=== PATIENT | male | born 1985 | race Caucasian/White ===

== ENCOUNTER 2016-07-08 15:02 | Day surgery (SDC) | payer BC ==
--- NOTE | 2016-07-08 15:10 | EDM.PDOC ---
ED HPI GENERAL MEDICAL PROBLEM - General Chief Complaint: General Stated Complaint: FOOD STUCK IN THROAT Time Seen by Provider: 07/08/16 15:10 Source of Information: Reports: Patient History Limitations: Reports: No limitations - History of Present Illness INITIAL COMMENTS - FREE TEXT/NARRATIVE: 30-year-old male presents the ED with esophageal obstruction. He states he was eating chicken yesterday and it got stuck in the lower part of his food pipe at about 1600 hours. He has not been able to swallow his own saliva since that time. He worked all night. Of note this is happened to him very frequently over the last several months. He had a piece of steak removed in January of last year by Dr. Tirado. Shunummsilviano he had had an esophagoscopy with removal of food product in [facility]. He was appreciated they seem to have some degree of stenosis at the distal aspect of his esophagus but he has never been dilated. He states now he is super careful with food in small quantity small pieces but continues to get food stuck almost every 2 weeks. Usually he can recur regurgitated up or intervention it works its way through. At present he is not in much pain her to discomfort. Nose pressure in the bed of the stomach. To his knowledge he has never had a peptic ulcer. Onset: sudden Onset Date: 07/08/16 Onset Time: 16:00 Duration: Hour(s):, Constant Location: Reports: chest (Pressure in the pit of his stomach or lower retrosternal area.) Quality: Reports: Ache, Other (Possibly regurgitating saliva or any fluids that he tries to intake.) Severity: moderate Improves with: Reports: None Worsens with: Reports: None Context: Reports: Other (Has been having food getting stuck in his distal esophagus about every 2 weeks for the last several months. He was here in January never piece of steak removed from his distal esophagus.). Denies: Activity, Exercise, Lifting, Sick contact, Trauma Associated Symptoms: Reports: no other symptoms. 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 [No Known Home Meds] 07/08/16 [History] Past Medical History Gastrointestinal History: Reports: GERD, Other (see below) (Suspect either achalasia or stricture of the distal esophagus) Social & Family History - Living Situation & Occupation Living situation: Reports: Occupation: employed ED ROS GENERAL - Review of Systems Review Of Systems: See Below Constitutional: Reports: no symptoms HEENT: Reports: No symptoms Respiratory: Reports: No Symptoms Cardiovascular: Reports: Chest pain (If he swallows he'll get pain in the distal aspect of his retrosternal chest.). Denies: Dyspnea on exertion, Edema, Lightheadedness, Orthopnea Endocrine: Reports: no symptoms GI/Abdominal: Denies: Abdominal pain : Reports: no symptoms Musculoskeletal: Reports: no symptoms Skin: Reports: no symptoms Neurological: Reports: No Symptoms ED EXAM, GENERAL - Physical Exam Exam: See Below Exam Limited By: No limitations General Appearance: alert, WD/WN, no apparent distress Eye Exam: bilateral eye: normal inspection (No jaundice) Throat/Mouth: Normal inspection, Normal lips, Normal teeth, Normal gums, Normal oropharynx Head: atraumatic, normocephalic Neck: normal inspection, supple, non-tender, full range of motion. No: lymphadenopathy (L), lymphadenopathy (R) Respiratory/Chest: no respiratory distress, lungs clear, normal breath sounds, no accessory muscle use Cardiovascular: normal peripheral pulses, regular rate, rhythm, no edema, no gallop, no JVD, no murmur, no rub Peripheral Pulses: 0: dorsalis pedis (L), 3+: posterior tibial (L), dorsalis pedis (R) GI/Abdominal: normal bowel sounds, soft, non tender, no organomegaly, no distention, no abnormal bruit, no mass (Male) Exam: No hernia Back Exam: normal inspection, full range of motion. No: CVA tenderness (L), CVA tenderness (R) Extremities: normal inspection, normal range of motion, non-tender, no pedal edema, normal capillary refill Neurological: alert, oriented, CN II-XII intact, normal cognition, normal gait Psychiatric: normal affect, normal mood Skin Exam: Warm, Dry, Intact, Normal color, No rash Course - Vital Signs Last Recorded V/S: Last Vital Signs Temp 36.8 C 07/08/16 15:08 Pulse 92 07/08/16 15:08 Resp 16 07/08/16 15:08 BP 143/87 H 07/08/16 15:08 Pulse Ox 100 07/08/16 15:08 - Orders/Labs/Meds Orders: Active Orders 24 hr Category Date Time Status Admission Status [Patient Status] [ADT] Routine ADT 07/08/16 16:49 Ordered Labs: Laboratory Tests 07/08/16 07/08/16 07/08/16 Range/Units 15:10 15:10 15:10 WBC 8.13 (4.23-9.07) K/mm3 RBC 5.90 (4.63-6.08) M/mm3 Hgb 17.1 (13.7-17.5) gm/L Hct 47.4 (40.1-51.0) % MCV 80.3 (79.0-92.2) fl MCH 29.0 (25.7-32.2) pg MCHC 36.1 H (32.2-35.5) g/dl RDW Std Deviation 37.3 (35.1-43.9) fL Plt Count 357 H (163-337) K/mm3 MPV 8.4 L (9.4-12.3) fl Neutrophils % (Manual) 80 H (40-60) % Band Neutrophils % 1 (0-10) % Lymphocytes % (Manual) 9 L (20-40) % Atypical Lymphs % 4 % Monocytes % (Manual) 6 (2-10) % Eosinophils % (Manual) 0 L (0.8-7.0) % Basophils % (Manual) 0 L (0.2-1.2) Platelet Estimate Adequate Plt Morphology Comment Normal RBC Morph Comment Normal PT 10.8 (8.0-13.0) SECONDS INR 0.99 Sodium 141 (136-145) mEq/L Potassium 3.8 (3.5-5.1) mEq/L Chloride 103 (98-107) mEq/L Carbon Dioxide 26 (21-32) mEq/L Anion Gap 15.8 H (5-15) BUN 19 H (7-18) mg/dL Creatinine 1.2 (0.7-1.3) mg/dL Est Cr Clr Drug Dosing 101.80 mL/min Estimated GFR (MDRD) > 60 (>60) mL/min BUN/Creatinine Ratio 15.8 (14-18) Glucose 79 (74-106) mg/dL Calcium 9.4 (8.5-10.1) mg/dL Total Bilirubin 1.4 H (0.2-1.0) mg/dL AST 23 (15-37) U/L ALT 28 (16-63) U/L Alkaline Phosphatase 75 (46-116) U/L Total Protein 7.9 (6.4-8.2) g/dl Albumin 4.9 (3.4-5.0) g/dl Globulin 3.0 gm/dL Albumin/Globulin Ratio 1.6 (1-2) Meds: Medications Discontinued Medications Generic Name Dose Route Start Last Admin Trade Name Freq PRN Reason Stop Dose Admin Fentanyl 100 mcg 07/08/16 15:16 07/08/16 15:28 Sublimaze IVPUSH 07/08/16 15:17 100 mcg ONETIME ONE Administration Glucagon 1 mg 07/08/16 15:17 07/08/16 15:29 Glucagen IVPUSH 07/08/16 15:18 1 mg ONETIME ONE Administration Sodium Chloride 1,000 mls @ 999 mls/hr 07/08/16 15:16 07/08/16 15:26 Normal Saline IV 07/08/16 16:16 999 mls/hr ONETIME ONE Administration Metoclopramide HCl 10 mg 07/08/16 15:16 07/08/16 15:27 Reglan IVPUSH 07/08/16 15:17 10 mg ONETIME ONE Administration - Radiology Interpretation Free Text/Narrative:: 31-year-old male presents the ED with foreign body in his distal esophagus. He states for the last several months she's been getting food easily stuck in his distal esophagus when he eats. He is to be very careful with all meat products ligament very small particles of Septra. He had a piece of steak removed in January of last year by Dr. Tirado. After this he had a EGD performed by I believe womens volleyball coach in [facility] identified evidence of reflux and inflammation of the distal esophagus. Apparently biopsies were obtained weren't nothing was found. Bili there was a mild stricture but the surgeon did not feel it needed to be dilated at that time. Patient states he ate chicken about 4:00 yesterday afternoon and recognized piece of chicken getting stuck in his distal esophagus. Since that time he is been regurgitating also either any fluids that he takes in. He is in minimal discomfort at this time. Plan Will rehydrate him with D5 normal saline at open. Routine labs will be collected as he may well need to go to the OR for EGD removal of foreign body. We'll try intravenous medications to see if we can alleviate the obstruction. - Re-Assessments/Exams Free Text/Narrative Re-Assessment/Exam: 07/08/16 16:16 patient received Reglan 10 mg IV fentanyl 100 mcg IV followed by glucagon 1 mg IV 5 minutes later. Then clear soda pop was utilized to try and reduce the obstruction but it failed to do so. I therefore spoke with on-call surgeon Dr. Ciaran Camara and she will attend the patient in the ED with a view to going to the operating room at about 1700 hours today to remove the foreign body or presented to the stomach. 07/08/16 16:20 labs are back reveal a normal white count at 8.13 with 80% neutrophils 1% band cells. Hemoglobin is 17.1 with hematocrit of 47.4 suggesting some degree of hemoconcentration. Platelets 3 and 57,000. Coags are normal. Anion gap is mildly elevated 15.8 bilirubin mildly elevated at 1.4. No reason that he cannot undergo general anesthetic for EGD and removal of foreign body or push into the stomach. Departure - Departure Time of Disposition: 16:57 Disposition: DC/Tfer to Critical Access [facility] Condition: fair Clinical Impression: Obstruction of distal esophagus due to foreign body Referrals: PCP,Not In Area [Primary Care Provider] - Forms: ED Department Discharge Additional Instructions: Patient to be taken to the operating room for removal of foreign body by Dr. Tiana Camara-- superannuation clerk surgeon. . - My Orders Last 24 Hours: My Active Orders 07/08/16 16:49 Admission Status [Patient Status] [ADT] Routine - Assessment/Plan Last 24 Hours: My Active Orders 07/08/16 16:49 Admission Status [Patient Status] [ADT] Routine
[2016-07-08] MEDS ORDERED: fentaNYL 100 MCG/2 ML SDV IVPUSH ONE (15:16)
[2016-07-08] MEDS ORDERED: Metoclopramide 10 MG/2 ML SDV IVPUSH ONE (15:16)
[2016-07-08] MEDS ORDERED: Sodium Chloride 0.9% 1,000 ML IV ONE (15:16)
[2016-07-08] MEDS ORDERED: Glucagon,Human Recombinant 1 MG Vial IVPUSH ONE (15:17)
--- NOTE | 2016-07-08 16:58 | PCM.PREANE ---
Preanesthetic Assessment - Physical Assessment NPO Status Date: 07/07/16 NPO Status Time: 14:00 O2 Sat by Pulse Oximetry: 100 Respiratory Rate: 16 Vital Signs: Last Vital Signs Temp 36.8 C 07/08/16 15:08 Pulse 92 07/08/16 15:08 Resp 16 07/08/16 15:08 BP 143/87 H 07/08/16 15:08 Pulse Ox 100 07/08/16 15:08 Height: 1.88 m Weight: 83.461 kg - Lab Values: Laboratory Last Values WBC 8.13 K/mm3 (4.23-9.07) 07/08/16 15:10 RBC 5.90 M/mm3 (4.63-6.08) 07/08/16 15:10 Hgb 17.1 gm/L (13.7-17.5) 07/08/16 15:10 Hct 47.4 % (40.1-51.0) 07/08/16 15:10 MCV 80.3 fl (79.0-92.2) 07/08/16 15:10 MCH 29.0 pg (25.7-32.2) 07/08/16 15:10 MCHC 36.1 g/dl (32.2-35.5) H 07/08/16 15:10 RDW Std Deviation 37.3 fL (35.1-43.9) 07/08/16 15:10 Plt Count 357 K/mm3 (163-337) H 07/08/16 15:10 MPV 8.4 fl (9.4-12.3) L 07/08/16 15:10 Neutrophils % (Manual) 80 % (40-60) H 07/08/16 15:10 Band Neutrophils % 1 % (0-10) 07/08/16 15:10 Lymphocytes % (Manual) 9 % (20-40) L 07/08/16 15:10 Atypical Lymphs % 4 % 07/08/16 15:10 Monocytes % (Manual) 6 % (2-10) 07/08/16 15:10 Eosinophils % (Manual) 0 % (0.8-7.0) L 07/08/16 15:10 Basophils % (Manual) 0 (0.2-1.2) L 07/08/16 15:10 Platelet Estimate Adequate 07/08/16 15:10 Plt Morphology Comment Normal 07/08/16 15:10 RBC Morph Comment Normal 07/08/16 15:10 PT 10.8 SECONDS (8.0-13.0) 07/08/16 15:10 INR 0.99 07/08/16 15:10 Sodium 141 mEq/L (136-145) 07/08/16 15:10 Potassium 3.8 mEq/L (3.5-5.1) 07/08/16 15:10 Chloride 103 mEq/L (98-107) 07/08/16 15:10 Carbon Dioxide 26 mEq/L (21-32) 07/08/16 15:10 Anion Gap 15.8 (5-15) H 07/08/16 15:10 BUN 19 mg/dL (7-18) H 07/08/16 15:10 Creatinine 1.2 mg/dL (0.7-1.3) 07/08/16 15:10 Est Cr Clr Drug Dosing 101.80 mL/min 07/08/16 15:10 Estimated GFR (MDRD) > 60 mL/min (>60) 07/08/16 15:10 BUN/Creatinine Ratio 15.8 (14-18) 07/08/16 15:10 Glucose 79 mg/dL (74-106) 07/08/16 15:10 Calcium 9.4 mg/dL (8.5-10.1) 07/08/16 15:10 Total Bilirubin 1.4 mg/dL (0.2-1.0) H 07/08/16 15:10 AST 23 U/L (15-37) 07/08/16 15:10 ALT 28 U/L (16-63) 07/08/16 15:10 Alkaline Phosphatase 75 U/L (46-116) 07/08/16 15:10 Total Protein 7.9 g/dl (6.4-8.2) 07/08/16 15:10 Albumin 4.9 g/dl (3.4-5.0) 07/08/16 15:10 Globulin 3.0 gm/dL 07/08/16 15:10 Albumin/Globulin Ratio 1.6 (1-2) 07/08/16 15:10 - Allergies Allergies/Adverse Reactions: Allergies Allergy/AdvReac Type Severity Reaction Status Date / Time No Known Allergies Allergy Verified 07/08/16 15:10 PreAnesthesia Questionnaire HEENT History: Reports: Other (see below) Other HEENT History: epiglotiitis Gastrointestinal History: Reports: GERD, Other (see below) (Suspect either achalasia or stricture of the distal esophagus) - Past Surgical History HEENT Surgical History: Reports: None - SUBSTANCE USE Smoking Status *Q: Never Smoker Recreational Drug Use History: No - HOME MEDS Home Medications: Home Meds . [No Known Home Meds] 07/08/16 [History] - CURRENT (IN HOUSE) MEDS Current Meds: Current Medications Discontinued Medications Fentanyl (Sublimaze) 100 mcg IVPUSH ONETIME ONE Stop: 07/08/16 15:17 Last Admin: 07/08/16 15:28 Dose: 100 mcg Glucagon (Glucagen) 1 mg IVPUSH ONETIME ONE Stop: 07/08/16 15:18 Last Admin: 07/08/16 15:29 Dose: 1 mg Sodium Chloride (Normal Saline) 1,000 mls @ 999 mls/hr IV ONETIME ONE Stop: 07/08/16 16:16 Last Admin: 07/08/16 15:26 Dose: 999 mls/hr Metoclopramide HCl (Reglan) 10 mg IVPUSH ONETIME ONE Stop: 07/08/16 15:17 Last Admin: 07/08/16 15:27 Dose: 10 mg Preanesthetic Assessment - ANESTHESIA/TRANSFUSION/FAMILY HX Anesthesia/Transfusion History: No Prior Transfusion(s), Prior Anesthesia Type of Anesthesia Reaction: Reports: Unknown Family History of Anesthesia Reaction: No Intubation History: Unknown Type of Transfusion Reactions: Reports: Unknown - REVIEW OF SYSTEMS Constitutional: Reports: no symptoms 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: Reports: no symptoms Respiratory: Reports: no symptoms Cardiovascular: Reports: no symptoms GI: Reports: difficulty swallowing (pt had same issue with steak about 2-3 years ago.) Other: Reports: None - PHYSICAL ASSESSMENT O2 Sat by Pulse Oximetry: 100 RR: 16 Vital Signs: Last Vital Signs Temp 36.8 C 07/08/16 15:08 Pulse 92 07/08/16 15:08 Resp 16 07/08/16 15:08 BP 143/87 H 07/08/16 15:08 Pulse Ox 100 07/08/16 15:08 Height: 1.88 m Weight: 83.461 kg NPO Status Date: 07/07/16 NPO Status Time: 14:00 ASA Class: 2 Mental Status: Alert & Oriented x3 Airway Class: Mallampati = 1 Dentition: Reports: Normal Dentition Thyro-Mental Finger Breadths: 1 Mouth Opening Finger Breadths: 1 ROM/Head Extension: Full Respiratory Status: lungs clear to auscultation bilaterally Cardiovascular Status: regular rate & rhythm, normal S1, S2, no murmur, blood pressure WNL - LAB Values: Laboratory Last Values WBC 8.13 K/mm3 (4.23-9.07) 07/08/16 15:10 RBC 5.90 M/mm3 (4.63-6.08) 07/08/16 15:10 Hgb 17.1 gm/L (13.7-17.5) 07/08/16 15:10 Hct 47.4 % (40.1-51.0) 07/08/16 15:10 MCV 80.3 fl (79.0-92.2) 07/08/16 15:10 MCH 29.0 pg (25.7-32.2) 07/08/16 15:10 MCHC 36.1 g/dl (32.2-35.5) H 07/08/16 15:10 RDW Std Deviation 37.3 fL (35.1-43.9) 07/08/16 15:10 Plt Count 357 K/mm3 (163-337) H 07/08/16 15:10 MPV 8.4 fl (9.4-12.3) L 07/08/16 15:10 Neutrophils % (Manual) 80 % (40-60) H 07/08/16 15:10 Band Neutrophils % 1 % (0-10) 07/08/16 15:10 Lymphocytes % (Manual) 9 % (20-40) L 07/08/16 15:10 Atypical Lymphs % 4 % 07/08/16 15:10 Monocytes % (Manual) 6 % (2-10) 07/08/16 15:10 Eosinophils % (Manual) 0 % (0.8-7.0) L 07/08/16 15:10 Basophils % (Manual) 0 (0.2-1.2) L 07/08/16 15:10 Platelet Estimate Adequate 07/08/16 15:10 Plt Morphology Comment Normal 07/08/16 15:10 RBC Morph Comment Normal 07/08/16 15:10 PT 10.8 SECONDS (8.0-13.0) 07/08/16 15:10 INR 0.99 07/08/16 15:10 Sodium 141 mEq/L (136-145) 07/08/16 15:10 Potassium 3.8 mEq/L (3.5-5.1) 07/08/16 15:10 Chloride 103 mEq/L (98-107) 07/08/16 15:10 Carbon Dioxide 26 mEq/L (21-32) 07/08/16 15:10 Anion Gap 15.8 (5-15) H 07/08/16 15:10 BUN 19 mg/dL (7-18) H 07/08/16 15:10 Creatinine 1.2 mg/dL (0.7-1.3) 07/08/16 15:10 Est Cr Clr Drug Dosing 101.80 mL/min 07/08/16 15:10 Estimated GFR (MDRD) > 60 mL/min (>60) 07/08/16 15:10 BUN/Creatinine Ratio 15.8 (14-18) 07/08/16 15:10 Glucose 79 mg/dL (74-106) 07/08/16 15:10 Calcium 9.4 mg/dL (8.5-10.1) 07/08/16 15:10 Total Bilirubin 1.4 mg/dL (0.2-1.0) H 07/08/16 15:10 AST 23 U/L (15-37) 07/08/16 15:10 ALT 28 U/L (16-63) 07/08/16 15:10 Alkaline Phosphatase 75 U/L (46-116) 07/08/16 15:10 Total Protein 7.9 g/dl (6.4-8.2) 07/08/16 15:10 Albumin 4.9 g/dl (3.4-5.0) 07/08/16 15:10 Globulin 3.0 gm/dL 07/08/16 15:10 Albumin/Globulin Ratio 1.6 (1-2) 07/08/16 15:10 - ALLERGIES Allergies/Adverse Reactions: Allergies Allergy/AdvReac Type Severity Reaction Status Date / Time No Known Allergies Allergy Verified 07/08/16 15:10 - BLOOD Blood Available: No Product(s) Available: None - ANESTHESIA PLAN Preop Beta Mateusz: No Anesthesia Type Planned: General Anesthesia - ACKNOWLEDGEMENTS Pt an Appropriate Candidate for the Planned Anesthesia: Yes Alternatives and Risks of Anesthesia Discussed w Pt/Guardian: Yes Pt/Guardian Understands and Agrees with Anesthesia Plan: Yes
[2016-07-08] MEDS ORDERED: Midazolam 1 MG/ML 2 ML SDV ONE (17:20)
[2016-07-08] MEDS ORDERED: fentaNYL 100 MCG/2 ML SDV ONE ×2 (17:20→18:15)
[2016-07-08] MEDS ORDERED: Propofol 200 MG/20 ML SDV ONE (17:20)
[2016-07-08] MEDS ORDERED: Lidocaine 1% 4 ML ONE (17:21)
[2016-07-08] MEDS ORDERED: Ondansetron 4 MG/2 ML SDV ONE (17:21)
[2016-07-08] MEDS ORDERED: Dexamethasone 4 MG/ML SDV ONE (17:21)
[2016-07-08] MEDS ORDERED: Succinylcholine/Normal Saline 100 MG/5 ML Syringe ONE (17:21)
--- NOTE | 2016-07-08 17:50 | PCM.CONS ---
H&P History of Present Illness - General Date of Service: 07/08/16 Admit Problem/Dx: Admission Diagnosis/Problem Admission Diagnosis/Problem Foreign body in esophagus Source of Information: Patient, Provider History Limitations: Reports: No limitations - History of Present Illness Initial Comments - Free Text/Narative: The patient is a 31-year-old man who presents the emergency department (Dr. Marquita fleming with a 24-hour history of a piece of chicken stuck in his throat. He does have a history of prior episodes of esophageal foreign body. He has had 2 prior endoscopies. His last endoscopy in [facility] demonstrated what sounds like eosinophilic esophagitis. He states he was NOT counseled to start any medication. He does not take any type of antacid on a daily basis. He did have glucagon and Ativan administered the emergency department which did not provide relief. He is not able to swallow his own saliva. He denies any significant alcohol or tobacco use. He occasionally drinks and occasionally smokes a cigarette. He has not had anything to drink in over 2 months. He rarely takes NSAIDs. Past medical history: esophageal foreign body, questionable eosinophilic esophagitis Past surgical history: EGD x2, shoulder surgery Medications: none, occasionally takes Prilosec [id number] Allergies: NKDA, seasonal allergies Social history: The patient lives with his and 2 children in [place]. He comes in 2 weeks to work 2 weeks out of the month with [employer]. He rarely smokes cigarettes and rarely drinks alcohol. He denies any illicit drug use. Family medical history: multiple family members with esophageal issues, none with esophageal cancer. ROS: Negative except as per HPI - Related Data Allergies/Adverse Reactions: Allergies Allergy/AdvReac Type Severity Reaction Status Date / Time No Known Allergies Allergy Verified 07/08/16 15:10 Home Medications: Home Meds . [No Known Home Meds] 07/08/16 [History] Past Medical History HEENT History: Reports: Other (see below) Other HEENT History: epiglotiitis Gastrointestinal History: Reports: GERD, Other (see below) (Suspect either achalasia or stricture of the distal esophagus) - Past Surgical History HEENT Surgical History: Reports: None Social & Family History - Family History Family Medical History: Noncontributory - Tobacco Use Smoking Status *Q: Never Smoker - Caffeine Use Caffeine Use: Reports: Coffee, Soda - Recreational Drug Use Recreational Drug Use: No - Living Situation & Occupation Living situation: Reports: Occupation: employed H&P Review of Systems - Review of Systems: Review Of Systems: ROS reveals no pertinent complaints other than HPI. Exam - Exam Exam: See Below - Vital Signs Vital Signs: Last Vital Signs Temp 98.3 F 07/08/16 15:08 Pulse 92 07/08/16 15:08 Resp 16 07/08/16 16:59 BP 143/87 H 07/08/16 15:08 Pulse Ox 100 07/08/16 16:59 Weight: 184 lb - Exam Quality Assessment: No: supplemental oxygen General: alert, oriented, cooperative HEENT: Conjunctiva clear. No: Scleral icterus Neck: supple, trachea midline, 2 Lungs: Clear to auscultation, Normal respiratory effort Cardiovascular: regular rate, regular rhythm Abdomen: soft. No: peritoneal signs, distention, guarding, rigidity, rebound, tenderness Rectal (Males) Exam: Deferred Extremities: No: clubbing, cyanosis, edema Skin: warm, dry, intact Neurological: normal speech. No: reflexes unequal Neuro Extensive - Mental Status: alert, oriented x3, normal mood/affect, normal cognition, memory intact Psychiatric: alert, normal affect, normal mood - Patient Data Lab Results last 24 hrs: Laboratory Results - last 24 hr 07/08/16 07/08/16 07/08/16 Range/Units 15:10 15:10 15:10 WBC 8.13 (4.23-9.07) K/mm3 RBC 5.90 (4.63-6.08) M/mm3 Hgb 17.1 (13.7-17.5) gm/L Hct 47.4 (40.1-51.0) % MCV 80.3 (79.0-92.2) fl MCH 29.0 (25.7-32.2) pg MCHC 36.1 H (32.2-35.5) g/dl RDW Std Deviation 37.3 (35.1-43.9) fL Plt Count 357 H (163-337) K/mm3 MPV 8.4 L (9.4-12.3) fl Neutrophils % (Manual) 80 H (40-60) % Band Neutrophils % 1 (0-10) % Lymphocytes % (Manual) 9 L (20-40) % Atypical Lymphs % 4 % Monocytes % (Manual) 6 (2-10) % Eosinophils % (Manual) 0 L (0.8-7.0) % Basophils % (Manual) 0 L (0.2-1.2) Platelet Estimate Adequate Plt Morphology Comment Normal RBC Morph Comment Normal PT 10.8 (8.0-13.0) SECONDS INR 0.99 Sodium 141 (136-145) mEq/L Potassium 3.8 (3.5-5.1) mEq/L Chloride 103 (98-107) mEq/L Carbon Dioxide 26 (21-32) mEq/L Anion Gap 15.8 H (5-15) BUN 19 H (7-18) mg/dL Creatinine 1.2 (0.7-1.3) mg/dL Est Cr Clr Drug Dosing 101.80 mL/min Estimated GFR (MDRD) > 60 (>60) mL/min BUN/Creatinine Ratio 15.8 (14-18) Glucose 79 (74-106) mg/dL Calcium 9.4 (8.5-10.1) mg/dL Total Bilirubin 1.4 H (0.2-1.0) mg/dL AST 23 (15-37) U/L ALT 28 (16-63) U/L Alkaline Phosphatase 75 (46-116) U/L Total Protein 7.9 (6.4-8.2) g/dl Albumin 4.9 (3.4-5.0) g/dl Globulin 3.0 gm/dL Albumin/Globulin Ratio 1.6 (1-2) Result Diagrams: 07/08/16 15:10 07/08/16 15:10 Consult PN Assessment/Plan (1) Obstruction of distal esophagus due to foreign body SNOMED Code(s): 961963899 Code(s): T18.108A - UNSP FOREIGN BODY IN ESOPHAGUS CAUSING OTH INJURY, INIT Current Visit: Yes Problem List Initiated/Reviewed/Updated: Yes My Orders last 24 hours: My Active Orders 07/08/16 17:00 Schedule Procedure [COMM] Urgent Plan: 31-year-old man with esophageal foreign body and apparent history of eosinophilic esophagitis I discussed with the patient EGD with removal of foreign body this evening. Risks and benefits were reviewed. I also discussed with him that it would be unlikely I would dilate this evening as he has had a foreign body x 24 hours and there will be significant edema. I will start him on a daily PPI. We briefly discussed eosinophilic esophagitis. He will need a followup EGD as well as possible dilation in the future and he will need a followup with me in clinic. Paperwork for work for him to return to work tomorrow was provided.
[2016-07-08] MEDS ORDERED: Rocuronium 50 MG/5 ML Vial ONE (18:19)
--- NOTE | 2016-07-08 18:35 | PCM.OPNOTE ---
- General Post-Op/Procedure Note Date of Surgery/Procedure: 07/08/16 Operative Procedure(s): Diagnostic EGD with removal of foreign body Pre Op Diagnosis: Esophageal foreign body, suspected history of eosinophilic esophagitis Post-Op Diagnosis: Esophageal foreign body, mild gastritis, mild duodenitis Anesthesia Technique: General ET tube Primary Surgeon: Candida Camara Anesthesia Provider: Alexi German Fluid Replacement, Intraop: 800 (mL crystalloid ) EBL in mLs: 0 Complications: None Condition: Good Free Text/Narrative:: INDICATION FOR PROCEDURE: The patient is a 31-year-old man who is referred to me by Dr. Wang in the emergency department for evaluation of foreign body of the esophagus. EGD had been discussed with the patient and risks of the associated procedure. The patient found these risks acceptable and agreed to proceed. DESCRIPTION OF PROCEDURE: The patient was taken to the operating room and placed in the left lateral decubitus position. After induction of general endotracheal anesthesia, a bite block was placed. A therapeutic Olympus gastroscope was inserted into the oropharynx and guided down the esophagus where a large food bolus was noted. An overtube was then placed and the obstruction (chicken) was removed piecemeal until the remaining food bolus could be pushed into the stomach. The gastroesophageal junction was appreciated at 45 cm from the teeth. The scope was advanced into the stomach, and there was gastritis which mild. The scope was passed into the proximal jejunum and the duodenum which showed mild duodenitis. There were no ulcerations. The proximal jejunum was grossly normal in appearance. The remainder of the gastric body was examined, and there were no abnormalities. The scope was retroflexed, and there was no evidence of hiatal hernia. The scope was straightened and withdrawn to the GE junction. There was esophagitis , no obvious Kimi-Johnson but there were small linear ulcerations and generalized edema. The posterior oropharynx was grossly normal in appearance. The scope was then fully withdrawn. The patient was awakened from sedation and transferred to the recovery room in stable condition having tolerated the procedure well. POSTOPERATIVE PLAN: I discussed with the patient's via telephone my intraoperative findings and postoperative recommendations. The patient will follow up in approximately 7-10 days to discuss their pathology and how their symptoms are progressing. He will need a repeat EGD scheduled for biopsies in about 3-4 weeks. The patient is to start Omeprazole, a prescription was provided. A work note was also provided. I have asked the patient to follow a GERD\gastritis diet. The patient is to call with any worsening of symptoms or questions prior to appointment.
[2016-07-08] MEDS ORDERED: Glycopyrrolate 0.2 MG/ML 2 ML SDV ONE (18:46)
[2016-07-08] MEDS ORDERED: Neostigmine Methylsulfate 1 MG/ML 5 ML Syringe ONE (18:46)
--- NOTE | 2016-07-08 19:10 | PCM.POSTAN ---
POST ANESTHESIA ASSESSMENT - MENTAL STATUS Mental Status: alert, oriented - VITAL SIGNS Pulse Rate: 81 SaO2: 95 Resp Rate: 18 Blood Pressure: 120/67 Temperature: 37.0 C - RESPIRATORY Respiratory Status: respiratory rate WNL, airway patent, O2 saturation stable, supplemental oxygen - CARDIOVASCULAR CV Status: pulse rate WNL, blood pressure stable - GASTROINTESTINAL GI Status: no symptoms - PAIN Pain Score: 0 - POST OP HYDRATION Hydration Status: adequate & stable
[2016-07-08] MEDS ORDERED: Ondansetron 4 MG/2 ML SDV IVPUSH PRN (19:14)
[2016-07-08] MEDS ORDERED: Meperidine PF 50 MG/ML Syringe IVPUSH PRN (19:14)
[2016-07-08] MEDS ORDERED: fentaNYL 100 MCG/2 ML SDV IVPUSH PRN (19:14)
[2016-07-08] MEDS ORDERED: diphenhydrAMINE 50 MG/ML SDV IVPUSH PRN (19:14)
--- NOTE | 2016-07-08 19:48 | PCM48HPAN ---
Post Anesthesia Note - EVALUATION WITHIN 48HRS OF ANESTHETIC Vital Signs in Normal Range: Yes Patient Participated in Evaluation: Yes Respiratory Function Stable: Yes Airway Patent: Yes Cardiovascular Function Stable: Yes Hydration Status Stable: Yes Pain Control Satisfactory: Yes Nausea and Vomiting Control Satisfactory: Yes Mental Status Recovered: Yes
[2016-07-08 19:53] VITALS: BP 132/69
== END 2016-07-08 19:51 | disposition home or self-care (01) ==
LOC: JD.ED 15:02 → JD.SDS 16:49
PROVIDERS: ATTEND Surgery
DX: T18.128A Food in esophagus causing other injury, initial encounter (principal); K29.70 Gastritis, unspecified, without bleeding; K29.80 Duodenitis without bleeding; K22.10 Ulcer of esophagus without bleeding; Z98.890 Other specified postprocedural states; J30.2 Other seasonal allergic rhinitis; K21.9 Gastro-esophageal reflux disease without esophagitis
CPT/HCPCS: 36415; 43247; 80053; 85025; 85610; 96361; 96374; 96375; 99284; J0330; J1100; J1610; J2250; J2405; J2710; J2765; J3010; J7040; 00740; 99285; J2704; J3490